=== PATIENT | female | born 1975 | race American Indian/Alaskan Native ===

== ENCOUNTER 2016-11-01 22:24 | Emergency (ER) | payer OTHER ==
[2016-11-02 01:14] VITALS: BP 149/100
[2016-11-02] MEDS ORDERED: TORADOL IM ONE (03:56)
[2016-11-02] MEDS ORDERED: FLEXERIL PO ONE (03:56)
[2016-11-02] MEDS ORDERED: NORCO 7.5/325 PO ONE (03:56)
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
--- NOTE | 2016-11-02 04:24 | XRay Report ---
FINAL REPORT PROCEDURE: XR KNEE LEFT THREE VIEWS TECHNIQUE: LEFT knee radiographs, AP, lateral and oblique views. CPT 97566 HISTORY: left swelling and pain COMPARISON: No prior studies are available for comparison. FINDINGS: Fracture (s) and/or Dislocation(s): None . Alignment: Normal . Joint space(s): Normal . Soft tissues: Normal . Bone mineralization: Normal . Foreign bodies: None . IMPRESSION: 1. There is no plain film evidence of fracture or dislocation or acute finding. 2. If there is continued concern for knee abnormality, additional evaluation advised only if clinically indicated.
== END 2016-11-02 05:18 | disposition home or self-care (01) ==
LOC: ED 22:24
DX: S80.02XA Contusion of left knee, initial encounter (principal); J45.909 Unspecified asthma, uncomplicated; Z91.013 Allergy to seafood; Z91.010 Allergy to peanuts; Z91.018 Allergy to other foods; Z88.8 Allergy status to other drugs, medicaments and biological substances; V49.9XXA Car occupant (driver) (passenger) injured in unspecified traffic accident, initial encounter; Y92.488 Other paved roadways as the place of occurrence of the external cause; Y93.89 Activity, other specified; Y99.8 Other external cause status
CPT/HCPCS: 29505; 73562; 96372; 99283; J1885